=== PATIENT | female | born 1990 | race Caucasian/White ===

== ENCOUNTER 2016-06-13 06:03 | Inpatient (IN) | payer OTHER ==
[2016-06-13 06:27] VITALS: BMI 24.0
[2016-06-13] MEDS ORDERED: Lactated Ringer's 1,000 ML IV SCH (06:30)
[2016-06-13 07:02] LABS: BASO # 0.1 K/uL (0.0-0.2); BASO % 0.6 % (0.0-2.0); EOS # 0.2 K/uL (0.0-0.7); EOS % 1.7 % (0.0-4.0); HEMATOCRIT 33.3 % (34.0-47.0); MEAN CELL VOLUME 81.3 fl (81.0-99.0); MEAN CORPUSCULAR HEMOGLOBIN 27.2 pg (27.0-31.0); MEAN CORPUSCULAR HGB CONC 33.4 g/dL (33.0-37.0); MEAN PLATELET VOLUME 8.3 fl (7.2-11.7); MONO # 0.9 K/uL (0.0-0.8); MONO % 7.7 % (0.0-10.0); NEUT # 7.9 K/uL (1.8-7.0); NRBC % 0.3 % (0.0-0.0); RED CELL DISTRIBUTION WIDTH 15.3 % (11.5-14.5)
[2016-06-13] MEDS ORDERED: Sodium Chloride 0.9% 1,000 ML IV SCH (07:30)
[2016-06-13] MEDS ORDERED: Phenylephrine 10 mg/ml Inj ONE (07:44)
[2016-06-13] MEDS ORDERED: Morphine 1 mg/ml preservative-free Inj(Duramorph) ONE (07:44)
--- NOTE | 2016-06-13 07:46 | OBHP ---
Datetime: 06/13/2016 07:40 IP Adm Impression: , intrauterine IP Admit Plan: Admit to unit; Initiate Section protocol Admit Comment, IP Provider: 26 y/o at 36+w EDC 07/05/16 based on u/s. Pt reports +fm, no lof, vb or ctx. She has a complete placenta previa and is scheduled to have repeat C/S. Patient reports f eeling well...Pt was given steroids for lung maturity. PNC: Dr. Castro, placenta previa. POBhx: 2 prior c/s on 2004 and 2014, both full term PMHx: HSV 1, denies any vaginal lesions ever All: Penicillin PNL: RPR nr, HIV neg, H/H 11.2/33.6, GCT 103 U/S: 04/04/16 BPP 8/8, variable presentation, complete previa, EFW 2#2oz 30% Social hx: denies toxic habits x 3 A/P: 26 y/o , 36w+ complete placenta previa Previous C/S Prep for C/S Pelvic Type - PN: Adequate Extremities - PN: Normal Abdomen - PN: Normal Back - PN: Normal Breast - PN: Not Done Lungs - PN: Normal Heart - PN: Normal Thyroid - PN: Normal Neurologic - PN: Normal HEENT - PN: Normal General - PN: Normal Comments, ACOG Physical Exam: ROS: HEENT: NO LOCKHART no ear pain; sore throat CV: no CP; no palpitations RESP: no SOB; no COUGH GI: No N/V/D : No F/U/D MS: no joint pain IP Hx Assessment: The History has been Reviewed and is Current EGA AdmitDate IP: 36.5 Vital Signs Provider: Reviewed; Within Normal Limits IP Chief Complaint: Scheduled Section Genitourinary Exam: Normal DTRs - PN: Normal
[2016-06-13] MEDS ORDERED: Oxytocin 30 units/LR 500ML 500 ML IV ONE ×2 (08:20→09:11)
[2016-06-13] MEDS ORDERED: Gentamicin 80mg/50ml NS 50 ML IVPB ONE ×2 (08:30→13:47)
[2016-06-13] MEDS ORDERED: Oxycodone/Acetaminophen 5/325 mg Tab PO PRN ×4 (10:15→13:47)
[2016-06-13] MEDS ORDERED: DiphenhydrAMINE 50 mg/ml Inj IVP PRN ×2 (10:43→13:47)
--- NOTE | 2016-06-13 11:18 | OP ---
PROCEDURE DATE: 06/13/2016 PREOPERATIVE DIAGNOSES: Placenta previa 36 weeks, history of 2 previous sections, breech pr esentation. POSTOPERATIVE DIAGNOSES: Placenta previa 36 weeks, history of 2 previous sections, breech p resentation. OPERATION PERFORMED: Repeat low-flap transverse section with an inverted T. SURGEON: Felix Castro MD. UTILITY TECH: Akhil Hernadez DO. ANESTHESIA: Spinal administered by Dr. Sebastian. ESTIMATED BLOOD LOSS: Approximately 1 liter of blood. The patient received 1500 mL of D5LR intraope ratively. URINE OUTPUT: 350 mL of clear urine. OPERATIVE FINDINGS: Baby girl, footling breech presentation. Apgars were 9 and 9. She weighed 2570 grams. Normal uterus, tubes, and ovaries were identified. Dr. Akhil Hernadez was the assistant designer in the procedure. He was instrumental in the care of the patient. He helped create exposure. He was helpful in delivering the , and he was essential in obtaini ng hemostasis. The procedure would not have been possible without his assistance. PROCEDURE: After informed consent was obtained, the patient was taken to the operating room where sp inal anesthesia was noted to be adequate. The patient was then prepped and draped in the usual steri le fashion. A Pfannenstiel skin incision was then made with a scalpel and carried down to the underl kassy layer of fascia. The fascia was nicked in the midline, and the fascial incision was then extend ed laterally with the curved Nelson scissors. Superior aspect of the fascial incision was then grasped with Bubba clamps, elevated up, and the rectus muscles were dissected off using sharp and blunt dis section. Attention was then turned to the inferior aspect of the fascial incision, which in similar fashion, w as grasped with Bubba clamps, elevated up, and the rectus muscles were dissected off using both ti p and blunt dissection. The rectus muscles were then in the midline. The peritoneum ident ified and entered sharply with the Metzenbaum scissors. The peritoneal incision was then extended abbott periorly and inferiorly with good visualization of the bladder. The vesicouterine peritoneum was the n identified and entered with the Metzenbaum scissors. The bladder flap was then created digitally. The bladder blade was then readjusted, and a low transverse incision was made with a scalpel. The b pillo was noted to be footling breech. Placenta was complete previa. Due to the unstable lie of compl ete previa, the uterus was T'd. A vertical incision was made on the uterus and then cut with the ban dage scissors. We could then identify both feet, and the baby was gently delivered from the breech p resentation. The nose and mouth were suctioned with DeLee suction trap. The cord was clamped and cu t. The infant was handed off to waiting pediatricians. The placenta was then removed manually. The uterus was cleared of all clots and debris. The vertica l incision was repaired in a layered fashion of 0 Vicryl. The endometrium was closed with 2-0 Vicryl . The endometrium was closed with 2-0 Vicryl in a running fashion. The myometrium was closed with 0 Vicryl in a running fashion. The serosa was closed with 2-0 chromic in a running fashion. Attention was then turned to the low transverse incision. It was repaired with 0 Vicryl in a running locked fashion. The second layer of the same suture was used to obtain excellent hemostasis. The a bdomen was then copiously irrigated. The irrigant was removed with a suction device. Hemostasis was noted. Interceed was placed for adhesion prevention. The peritoneum was then closed with 2-0 Vicry l in a running fashion. The fascia was closed. The muscles were reapproximated with 0 Vicryl in an interrupted fashion. The fascia was closed with 0 Vicryl in a running fashion. The skin was closed with 3-0 on a Kole needle. All sponge, lap, needle, and instrument counts were correct x 2, and the patient was taken to recover y room in awake and stable condition. Felix Castro MD cc: [phone] TT: 06/13/2016 11:18:23 brandon
[2016-06-13] MEDS: Lactated Ringer's 1,000 ML IV SCH ×2 (12:30→20:33)
[2016-06-13] MEDS ORDERED: Simethicone 80 mg Chewtab PO SCH (16:00)
[2016-06-13] MEDS: Simethicone 80 mg Chewtab PO SCH ×2 (16:10→21:44)
[2016-06-14] MEDS: Simethicone 80 mg Chewtab PO SCH ×4 (04:28→21:43)
[2016-06-14 07:14] LABS: HEMATOCRIT 22.8 % (34.0-47.0); MEAN CELL VOLUME 81.4 fl (81.0-99.0); MEAN CORPUSCULAR HEMOGLOBIN 27.1 pg (27.0-31.0); MEAN CORPUSCULAR HGB CONC 33.3 g/dL (33.0-37.0); RED CELL DISTRIBUTION WIDTH 15.1 % (11.5-14.5)
--- NOTE | 2016-06-14 09:15 | OBPPN ---
Datetime: 06/14/2016 09:10 PP Pain Prov: Within normal limits PP Nausea Prov: Denies PP Flatus Prov: Yes PP BM Prov: No PP Abdomen/Uterus Prov: Normal PP Lochia Prov: Normal PP Vulva/Perineum Prov: Not Done PP Extremities Prov: Normal PP C/S Incision Prov: Normal PP Progress Prov: Normal PP Comments Phys Exam Prov: Incision: intact w/ steri strips PP Impression Prov: Normal progression PP Plan Prov: Continue present management PP Progress Note Prov: POD 1 s/p c/s for breech, breast and bottle feeding Pt c/o burning pain on one side of her incision, refusing percocet Offered tylenol w/ codeine and pt declined Vital Signs Provider PP: Reviewed
[2016-06-14] MEDS ORDERED: Lansinoh for Breast Feeding Mothers TP SCH (15:15)
[2016-06-15] MEDS: Simethicone 80 mg Chewtab PO SCH ×3 (03:39→16:31)
--- NOTE | 2016-06-15 10:06 | OBDS ---
DELIVERY PERSONNEL Delivery Doctor: Clinton Castro MD Emergency Room Physician Assistant: Caryn Whitley RN Anesthesiologist: dustin MATERNAL INFORMATION Delivery Anesthesia: Spinal Medications in Delivery: genatmycin, clinda, pitocin Estimated Blood Loss (ml): 1000 Placenta Cultured: Yes Maternal Complications: None Provider Comments: see operative report LABOR SUMMARY EDC: 07/06/2016 00:00 No. Babies in Womb: 1 Attempted: No Labor Anesthesia: None LABOR INFORMATION Reason for Induction: Not Applicable Oxytocin: N/A Group B Beta Strep: N/A Steroids Given: Full Course; > 24 Hours before Delivery Reason Steroids Not Administered: Maternal Indication MEMBRANES Membranes Rupture Method: Spontaneous Rupture of Membranes: 06/13/2016 09:19 Length of Rupture (hrs): 0.03 Amniotic Fluid Color: Clear Amniotic Fluid Amount: Moderate Amniotic Fluid Odor: Normal STAGES OF LABOR Stage 3 hrs: 0 Stage 3 min: 0 CSECTION DELIVERY Primary Indication: Repeat Elective Secondary Indication: Other Other Secondary Indication: placenta previa CSection Urgency: N/A CSection Incidence: Repeat Labor: N/A Elective: Nonelective CSection Incision: Lower Uterine Transverse BABY A INFORMATION Delivery Date/Time: 06/13/2016 09:21 Method of Delivery: Born in Route : No : N/A Forceps: N/A Vacuum Extraction: N/A Shoulder Dystocia : No SHOULDER DYSTOCIA BABY A Delivery Date/Time: 06/13/2016 09:21 PRESENTATION/POSITION BABY A Presentation: Breech Cephalic Presentation: N/A Breech Presentation: Complete PLACENTA INFORMATION BABY A Placenta Delivery Time : 06/13/2016 09:21 Placenta Method of Delivery: Manual Removal Placenta Status: Delivered SCORES BABY A Heart Rate 1 min: >100 bpm Resp Effort 1 min: Good Cry Reflex Irritability 1 min: Cough or Sneeze or Pulls Away Muscle Tone 1 min: Active Motion Color 1 min: Body Cubero, Extremities Blue Resuscitation Effort 1 min: N/A SCORE 1 MIN: 9 Heart Rate 5 min: >100 bpm Resp Effort 5 min: Good Cry Reflex Irritability 5 min: Cough or Sneeze or Pulls Away Muscle Tone 5 min: Active Motion Color 5 min: Body Cubero, Extremities Blue Resuscitation Effort 5 min: N/A SCORE 5 MIN: 9 INFORMATION BABY A Gestational Age at Delivery: 36.6 Gestational Status: Term Infant Outcome : Liveborn Infant Condition : Stable Infant Sex: Female WEIGHT/LENGTH BABY A Infant Birthweight (gms): 2570 Weight (lb): 5 Infant Weight (oz): 11 Infant Length Inches: 18.25 Infant Length cms: 46.4 CORD INFORMATION BABY A No. Cord Vessels: 3 Nuchal Cord : Around Neck x1, Loose Cord Blood Taken: No Infant Suction: Mouth; Nose ASSESSMENT BABY A Infant Complications: None Physical Findings at Delivery: Within Normal Limits Infant Respirations: Appears Normal Care By: Jose Ricci/ Dr. Arroyo Transferred To: [facility]
--- NOTE | 2016-06-15 12:24 | OBDCSUM ---
Datetime: 06/05/2016 12:30 Discharge Instructions, Provider: Routine instructions given Discharge Diagnosis, Provider: Term Delivered Contraception discussed, Prov: Yes Disch Activity Restrictions: No exercising; Nothing in vagina - Garner, tampons, douche Discharge Comment, Provider: doing well Contraception after Delivery: Undecided
== END 2016-06-15 17:20 | disposition home or self-care (01) | DRG 371 ==
LOC: H.L&D 06:03 → H.OB/GYN 13:30
PROVIDERS: ADMIT Obstetrics & Gynecology; ATTEND Obstetrics & Gynecology
PROC: 10D00Z1 Extraction of Products of Conception, Low, Open Approach (ICD-10-PCS; principal; 2016-06-13)
PROC: 4A1HXCZ Monitoring of Products of Conception, Cardiac Rate, External Approach (ICD-10-PCS; 2016-06-13)
DX: O44.03 Complete placenta previa NOS or without hemorrhage, third trimester (principal); O60.14X0 Preterm labor third trimester with preterm delivery third trimester, not applicable or unspecified; N85.8 Other specified noninflammatory disorders of uterus; O34.211 Maternal care for low transverse scar from previous cesarean delivery; Z3A.36 36 weeks gestation of pregnancy; Z37.0 Single live birth; O32.8XX0 Maternal care for other malpresentation of fetus, not applicable or unspecified; O69.81X0 Labor and delivery complicated by cord around neck, without compression, not applicable or unspecified

== ENCOUNTER 2017-10-20 02:57 | Emergency (ER) | payer MEDICAID, OTHER ==
[2017-10-20 03:14] VITALS: BMI 20.9
[2017-10-20 03:15] VITALS: BP 109/77; PULSE 96; RESP 18; TEMP 97.6; O2SAT 100
--- NOTE | 2017-10-20 05:23 | ED PDOC ---
HPI: Back Time Seen by Provider: 10/20/17 03:48 Chief Complaint (Nursing): Back Pain Chief Complaint (Provider): Back Pain History Per: Patient History/Exam Limitations: no limitations Onset/Duration Of Symptoms: Hrs, Intermittent Episodes Current Symptoms Are (Timing): Still Present Additional Complaint(s): 27 y/o female presents to the ED complaining of back pain that comes and goes, onset 2 days ago. Otherwise: (-) fever, (-) cough, (-) shortness of breath, (-) urinary symptoms, (-) nausea, (-) vomiting, (-) trauma, (-) injury, (-) leg pain , (-) swelling, (-) recent travel, (-) OCP Use, (-) heavy lifting. Past Medical History Reviewed: Historical Data, Nursing Documentation, Vital Signs Vital Signs: Last Vital Signs Temp 97.6 F 10/20/17 03:14 Pulse 96 H 10/20/17 03:14 Resp 18 10/20/17 03:14 BP 109/77 10/20/17 03:14 Pulse Ox 100 10/20/17 03:14 - Medical History PMH: No Chronic Diseases, Depression (on zoloft) Denies: Chronic Kidney Disease - Surgical History Surgical History: No Surg Hx - Family History Family History: States: Unknown Family Hx - Social History Current smoker - smoking cessation education provided: No - Home Medications Home Medications: Ambulatory Orders Medication Instructions Recorded Cyclobenzaprine [Cyclobenzaprine 10 mg PO TID PRN #15 tab 10/20/17 HCl] Naproxen 500 mg PO BID PRN #20 tablet 10/20/17 - Allergies Allergies/Adverse Reactions: Allergies Allergy/AdvReac Type Severity Reaction Status Date / Time Penicillins Allergy Mild SWELLING Verified 10/20/17 03:26 Review of Systems ROS Statement: Except As Marked, All Systems Reviewed And Found Negative Musculoskeletal: Positive for: Back Pain Physical Exam - Reviewed Nursing Documentation Reviewed: Yes Vital Signs Reviewed: Yes - Physical Exam Appears: Positive for: Well, Non-toxic, No Acute Distress Head Exam: Positive for: ATRAUMATIC, NORMAL INSPECTION, NORMOCEPHALIC Skin: Positive for: Normal Color, Warm, DRY Eye Exam: Positive for: EOMI, Normal appearance, PERRL ENT: Positive for: Normal ENT Inspection Neck: Positive for: Normal, Painless ROM Cardiovascular/Chest: Positive for: Regular Rate, Rhythm Respiratory: Positive for: CNT, Normal Breath Sounds Gastrointestinal/Abdominal: Positive for: Normal Exam, Soft. Negative for: Tenderness Back: Positive for: Normal Inspection, Other (no paravertebral tenderness). Negative for: L CVA Tenderness, R CVA Tenderness, Vertebral Tenderness, Decreased ROM, Muscle Spasm Extremity: Positive for: Normal ROM. Negative for: Tenderness, Swelling Neurologic/Psych: Positive for: Alert, Oriented - ECG O2 Sat by Pulse Oximetry: 100 (RA) Pulse Ox Interpretation: Normal Medical Decision Making Medical Decision Making: Advised to follow up with primary care physician in 1-2 days without fail. Advised to take medication as prescribed. Return to the emergency room at any time for any new or worsening symptoms. Patient states she fully agrees with and understands discharge instructions. States that she agrees with the plan and disposition. Verbalized and repeated discharge instructions and plan. I have given the patient opportunity to ask any additional questions. Scribe Attestation: Documented by Sg Davis acting as a scribe for Rose Guerrero PA-C. Provider Scribe Attestation: All medical record entries made by the Scribe were at my direction and personally dictated by me. I have reviewed the chart and agree that the record accurately reflects my personal performance of the history, physical exam, medical decision making, and the department course for this patient. I have also personally directed, reviewed, and agree with the discharge instructions and disposition. Disposition - Clinical Impression Clinical Impression: Back pain - Patient ED Disposition Is Patient to be Admitted: No Counseled Patient/Family Regarding: Diagnosis, Need For Followup, Rx Given - Disposition Disposition: Routine/Home Disposition Time: 05:30 Condition: STABLE Additional Instructions: Thank you for letting us take care of you today. You were treated for back pain. The emergency medical care you received today was directed towards the acute presenting symptoms. If you were prescribed any medication, please fill it and give as directed. It may take several days for your symptoms to resolve. Return to the Emergency Department at any time if symptoms worsen, do not improve, or if any other problems arise. Please contact your doctor in 2 days for re-evaluation and follow up. Bring any paperwork you were given at discharge with you along with any medications to your follow up visit. Our treatment cannot replace ongoing medical care by a primary care provider (PCP) outside of the emergency department. Thank you for allowing the [facility] team to be part of your care today. Prescriptions: Cyclobenzaprine [Cyclobenzaprine HCl] 10 mg PO TID PRN #15 tab PRN Reason: Muscle Spasm Naproxen 500 mg PO BID PRN #20 tablet PRN Reason: Pain, Moderate (4-7) Instructions: Upper Back Pain (DC) Forms: [facility] ([place]an)
== END 2017-10-20 06:21 | disposition home or self-care (01) ==
LOC: H.ER 02:57
DX: M54.9 Dorsalgia, unspecified (principal); Z88.0 Allergy status to penicillin